=== PATIENT | female | born 1995 | race Caucasian/White ===

== ENCOUNTER 2018-12-01 09:11 | Emergency (ER) | payer OTHER, BC ==
[2018-12-01 09:18] VITALS: TEMP 98.2
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
[2018-12-01 10:48] VITALS: RESP 18
[2018-12-01 12:07] VITALS: BP 114/78; PULSE 76; O2SAT 98
--- NOTE | 2018-12-01 12:36 | RAD ---
Date of service: 12/01/2018 PROCEDURE: Cervical Spine Radiographs. HISTORY: Pain. COMPARISON: None available. FINDINGS: BONES: There is reversal of the normal lordotic curvature. This could be due to muscular spasm or patient positioning DISC SPACES: Normal. SOFT TISSUES: Normal. No prevertebral soft tissue swelling. OTHER FINDINGS: None. IMPRESSION: No acute findings. Reversal of the normal lordotic curvature
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
== END 2018-12-01 12:12 | disposition home or self-care (01) ==
LOC: ED 09:11
DX: S16.1XXA Strain of muscle, fascia and tendon at neck level, initial encounter (principal); S39.012A Strain of muscle, fascia and tendon of lower back, initial encounter; V49.9XXA Car occupant (driver) (passenger) injured in unspecified traffic accident, initial encounter
CPT/HCPCS: 72050; 72110; 81025; 96372; 99285; J1885